=== PATIENT | male | born 1975 | race Caucasian/White ===

== ENCOUNTER 2020-09-23 12:45 | Outpatient (REF) | payer BC, SELFPAY | END 2020-09-23 12:46 | disposition home or self-care (01) | LOC: HO.LAB 12:45 | PROVIDERS: Visit Provider Internal Medicine | DX: Z20.828 Contact with and (suspected) exposure to other viral communicable diseases (principal) | CPT/HCPCS: C9803; U0003 ==

== ENCOUNTER 2025-05-28 12:44 | Emergency (ER) | payer BC, SELFPAY ==
[2025-05-28] VITALS (8 sets, daily range): BP systolic 114–137; BP diastolic 75–89; PULSE 66–99; RESP 16–17; TEMP -17.7–36.4; O2SAT 96–99; BMI 27.8
--- NOTE | ~2025-05-28 | XR_ITS ---
EXAMINATION: XR CHEST CLINICAL INFORMATION: dizziness COMPARISON: 02/16/2016 TECHNIQUE: 2 views of the chest were obtained. FINDINGS: The cardiac, hilar, and mediastinal contours are normal. The lungs are clear bilaterally. There is no pneumothorax or pleural effusion. There is no focal osseous or soft tissue abnormality. XR/XR chest 2V IMPRESSION: Normal chest. Electronically signed by: Amrit Mckoy MD 05/28/2025 02:01 PM EDT
--- NOTE | 2025-05-28 12:47 | ECG_ITS ---
Test Reason : ABDNORMAL EKG Blood Pressure : */* mmHG Vent. Rate : 72 BPM Atrial Rate : 72 BPM P-R Int : 156 ms QRS Dur : 134 ms QT Int : 384 ms P-R-T Axes : 33 27 3 degrees QTcB Int : 420 ms Normal sinus rhythm Right bundle branch block Abnormal ECG When compared with ECG of 24-Aug-2009 22:38, Right bundle branch block is now Present Referred By: Dulce Maria Gilbert Electronically Signed By: HIPOLITO MOMIN
--- NOTE | 2025-05-28 12:53 | ED.GENADULT ---
HPI - General Adult General Chief complaint: Arrhythmia/Palpitations Stated complaint: Dizzy Lightheaded Abnormal EKG Time Seen by Provider: 05/28/25 12:59 Source: patient Mode of arrival: ambulatory Limitations: no limitations History of Present Illness ED Provider: HPI narrative: 49-year-old male complaining of dizziness for the past 3- 4 weeks, he reports a feeling of like he may pass out, nonsmoker, drinks approximately 8-10 drinks a week, states does not have a PCP has not been able to find anyone who is taken on your patients, no chest pain, he reports chronic dyspnea, no dysuria no hematuria. No palpitations. Went to urgent Care was sent here because he has a right bundle-branch block on EKG. Related Data Previous Rx's ?Medication ?Instructions ?Recorded meclizine 25 mg tablet 25 mg PO TID-QID PRN dizziness 5 05/28/25 days #30 tabs Allergies Allergy/AdvReac Type Severity Reaction Status Date / Time SEASONAL ALLERGIES Allergy Mild NASAL Uncoded 05/28/25 12:52 CONJ, SINUS H/A Review of Systems Constitutional: Constitutional: Reports as per [facility] Social History Social History Advance Directives: Yes Advance Directives Information Provided: Yes Advance Directives on File: No Do you have a plan to hurt others: No Plan Physical Exam ED Vital Signs: Vital Signs - 24 hr 05/28/25 12:45 05/28/25 13:22 05/28/25 13:25 Temperature 97.6 F Pulse Rate 78 88 76 Respiratory Rate 16 16 16 Blood Pressure 125/85 129/88 134/89 Pulse Oximetry 99 Oxygen Delivery Method Room Air 05/28/25 13:26 05/28/25 15:55 05/28/25 15:57 Temperature Pulse Rate 99 66 67 Respiratory Rate 16 Blood Pressure 114/75 137/87 127/85 Pulse Oximetry Oxygen Delivery Method 05/28/25 15:58 Temperature Pulse Rate 71 Respiratory Rate Blood Pressure 122/89 Pulse Oximetry Oxygen Delivery Method BMI result Body Mass Index 27.8 Const Other: Gen: ?Overall well-appearing patient HEENT: PERRLA, EOMI, MMM, Neck: Supple, no LAD CV: RRR, no obvious murmurs appreciated Resp: ?No wheezing rales rhonchi no stridor moving air well Abd: ?Bowel sounds are present, no tenderness no rebound no rigidity MSK: FROM, strength 5/5 all extremities Skin: Warm, dry, intact,, no dysmetria upper extremities or lower extremities he did have some symptoms of vertigo left-sided horizontal nystagmus no sustained without vertical or rotary component Neuro: ?Alert and oriented x3, moving upper and lower extremities symmetrically, no obvious facial asymmetry noted Course Course Course Narrative: Rapid medical examination performed in triage by Dulce Maria Gilbert PA-C. Patient is a 49 year old assigned male at presenting to the emergency department with dizziness / lightheadedness and an abnormal outpatient EKG. Detailed physical exam and review of systems are deferred to the metal precision machine assembler. EKG, labs, imaging ordered. Patient placed back in the waiting room pending room availability and results. Medications Administered Generic Name Dose Route Start Last Admin Trade Name Freq PRN Reason Stop Dose Admin Lactated Ringer's 1,000 mls @ 0 mls/hr 05/28/25 13:30 05/28/25 15:03 Lr IV Infused .Q0M WILLIAMS Infusion Wide Open Discontinued Medications Generic Name Dose Route Start Last Admin Trade Name Freq PRN Reason Stop Dose Admin Meclizine HCl 12.5 mg 05/28/25 13:23 05/28/25 13:35 Meclizine Hcl 12.5 Mg Tablet PO 05/28/25 13:24 12.5 mg ONCE ONE Administration Scopolamine 1.5 mg 05/28/25 13:23 05/28/25 13:35 Scopolamine 1.5 Mg Patch.Td.3 EAR-BEHIND 05/28/25 13:24 1.5 mg ONCE ONE Administration Procedures Ultrasound ED POC Ultrasound: EMERGENCY ULTRASOUND REPORT?Point of Care Cardiac (Echo-Focus), images I locally stored Emergent Cardiac for Indication: Presyncope Views Used: Parasternal long, parasternal short, 4 chamber, subxiphoid, IVC Pericardial Effusion/Tamponade Findings: No pericardial effusion Global LV Fxn: Good cardiac squeeze IVC Dilation and Resp Variation: IVC collapsed consistent with hypovolemia, no evidence for RV strain no pericardial effusion Medical Decision Making Medical Decision Making MDM Narrative: Patient presenting with what appears to be both slight vertigo as well as evidence of hypovolemia and positive orthostatic changes, bedside ultrasound with evidence of IVC collapse more than 50%, possibly related to lifestyle, also 8-10 drinks of alcohol a week, there was no pericardial effusion RV strain to suspect PE, no dysrhythmia, he went to urgent Care initially was sent to the ER because of right bundle-branch block without any other dysrhythmia or QT abnormalities, it was cleaned to him that RBBB is not something that he needs to worry about, did pause with him I discussed that he needs to have a PCP involved in his care he has had a hard time finding 1 unfortunately. We will treat with fluids, anti vertigo medications, we will reassess we will determine disposition. 16:18 with fluids patient's blood pressure improved, he did have orthostatic vital sign changes, see my discharge instructions Differential Diagnosis Differential Diagnoses: The differential diagnosis associated with the presentation includes (ACS, dysrhythmia, electrolyte derangements, dehydration, anemia, PE,) Admission/Observation Consideration of admission/observation: Escalation of care including admission/observation considered 2022 Emergency Medicine Coding Guide from [employer] on 05/28/2025 All calculations should be rechecked by clinician prior to use RESULT SUMMARY: 5 Estimated Level of Service Problems: Moderate (4) Risk: High (5) Data: Extensive (5) NARRATIVE MDM: This patient's problem complexity is Moderate as patient: has a new undiagnosed problem with uncertain prognosis but that could be serious. This patient's risk is High due to: overall presentation requiring evaluation for a potentially High-risk process. This patient's data complexity is Extensive due to: -multiple tests ordered/reviewed -external notes reviewed -independent interpretation of imaging or EKG INPUTS: Number and Complexity ?> 5 = 4: undiagnosed new problem, uncertain outcome (e) Risk level ?> 4 = High Tests ordered ?> 3 = >= Tests results reviewed (excluding labs) ?> 3 = >= Prior external notes reviewed ?> 1 = 1 Assessment requiring and independent historian ?> 0 = No Independent interpretation of tests ?> 1 = Yes Discussed management/test interpretation w/external professional ?> 0 = No Lab Data MDM Lab Attestation statement: I reviewed the patient's lab results. 05/28/25 13:03 05/28/25 13:03 Labs: Lab Results 05/28/25 Range/Units 13:03 WBC 8.2 (4.8-10.8) X10*3/uL RBC 4.91 (4.60-5.80) X10*6/uL Hgb 14.6 (14.0-18.0) g/dl Hct 42.6 (42.0-52.0) % MCV 86.8 (80.0-98.0) fL MCH 29.7 (27.0-33.0) pg MCHC 34.3 (31.0-36.0) g/dl RDW 12.5 (11.0-16.0) % Plt Count 210 (160-400) X10*3/uL MPV 9.8 (9.4-12.4) fL Immature Gran % (Auto) 0.2 (0.0-0.4) % Neut % (Auto) 70.2 (45-73) % Lymph % (Auto) 20.8 (20-40) % [place] % (Auto) 7.8 (2-11) % Eos % (Auto) 0.6 (0-4) % Baso % (Auto) 0.4 (0-2) % Lymph # (Auto) 1.7 (1.2-4.9) X10*3/uL [place] # (Auto) 0.6 (0.1-1.2) X10*3/uL Eos # (Auto) 0.1 (0.0-0.4) X10*3/uL Baso # (Auto) 0.0 (0.0-0.2) X10*3/uL Abs Immat Gran (auto) 0.02 (0.00-0.03) X10*3/uL Absolute Neuts (auto) 5.7 (2.0-8.3) x10*3/uL Absolute Nucleated RBC 0.000 (0.0-0.012) X10*3/uL Nucleated RBC % (auto) 0.0 (0.0-0.2) /100WBC PT 10.8 L (10.9-12.4) SEC INR 0.9 (0.9-1.1) Sodium 139 (135-145) mmol/L Potassium 4.0 (3.3-5.1) mmol/L Chloride 107 (96-108) mmol/L Carbon Dioxide 25 (22-29) mmol/L Anion Gap 11 L (12-20) BUN 19 H (9-16) mg/dL Creatinine 1.08 (0.5-1.4) mg/dL Estim Creat Clear Calc 89.8 Estimated GFR > 60 Random Glucose 90 (60-115) mg/dL Calcium 9.7 (8.4-10.2) mg/dL Magnesium 1.8 (1.6-2.6) mg/dL Total Bilirubin 0.6 (0.0-1.0) mg/dL AST 27 (5-37) U/L ALT 25 (0-40) U/L Alkaline Phosphatase 55 (39-117) U/L Troponin I High Sens < 2.7 (<3.5-35.0) ng/L Total Protein 7.2 (6.5-8.0) g/dL Albumin 4.7 (3.5-5.0) g/dL Independent Interpretation I performed an independent interpretation of an: EKG (72 beats per minute, right bundle-branch block, no QTC prolongation, no dysrhythmia, sinus rhythm) and Plain X-Ray (My independent chest xray interpretation: Lungs: Lungs are clear bilaterally without evidence of focal consolidation, pleural effusion, or pneumothorax. Cardiac silhouette is unremarkable, no obvious mediastinal widening, no obvious bony abnormalities such as fractures. Impression: Normal chest X-r) Radiology Impression Discussion of test interpretation with radiology: I have reviewed the radiologist's reading. External Record Review External record reviewed: Office record (Urgent care record) Discharge Plan Discharge Clinical Impression: Orthostatic hypotension, Hypovolemia, Benign paroxysmal positional vertigo Patient Disposition: Home, Self-Care Instructions: Dizziness (ED) Additional Instructions: Please stay well hydrated throughout the day with water and electrolyte containing solutions such as Gatorade/Powerade I would cut down to 5 alcoholic drinks a week We spoke about establishing PCP follow-up Your workup was consistent with hypovolemia, dehydration, and likely slight amount of vertigo and I believe it is possibly due to the fact that you are over cleaning and irritating your ear canals The rest of the workup has been reassuring Use meclizine as prescribed every 6-8 hours if you have sensation of spinning/vertigo Prescriptions: New meclizine 25 mg tablet 25 mg PO TID-QID PRN (Reason: dizziness) 5 Days Qty: 30 0RF Print Language: Pakistani
[2025-05-28 13:08] LABS: MANUAL DIFF FLAG NO
[2025-05-28 13:09] LABS: Hematocrit 42.6 % (42.0-52.0); Hemoglobin 14.6 g/dl (14.0-18.0); Imm Gran Abs Auto 0.02 X10*3/uL (0.00-0.03); Imm Gran Pct Auto 0.2 % (0.0-0.4); Lymphocytes Absolute Auto 1.7 X10*3/uL (1.2-4.9); Mean Corpuscular HGB Conc 34.3 g/dl (31.0-36.0); Mean Corpuscular Hemoglobin 29.7 pg (27.0-33.0); Mean Corpuscular Volume 86.8 fL (80.0-98.0); NRBC Abs Auto 0.000 X10*3/uL (0.0-0.012); NRBC Pct Auto 0.0 /100WBC (0.0-0.2); Platelet Count 210 X10*3/uL (160-400); Red Blood Count 4.91 X10*6/uL (4.60-5.80); White Blood Count 8.2 X10*3/uL (4.8-10.8)
[2025-05-28 13:20] LABS: INTERNATIONAL NORM RATIO 0.9 (0.9-1.1); Prothrombin Time 10.8 SEC (10.9-12.4)
[2025-05-28] MEDS: Lactated Ringers 1,000 ML 1000 ML IV (13:34)
[2025-05-28 13:37] LABS: Alanine Aminotransferase 25 U/L (0-40); Albumin Level 4.7 g/dL (3.5-5.0); Alkaline Phosphatase 55 U/L (39-117); Anion Gap 11 (12-20); Aspartate Amino Transferase 27 U/L (5-37); Blood Urea Nitrogen 19 mg/dL (9-16); Calcium 9.7 mg/dL (8.4-10.2); Carbon Dioxide 25 mmol/L (22-29); Chloride 107 mmol/L (96-108); Creatinine Clr Calc Pharmacy 89.8; Estimated Glomerular Filt Rate > 60; Magnesium 1.8 mg/dL (1.6-2.6); Potassium 4.0 mmol/L (3.3-5.1); Sodium 139 mmol/L (135-145); Total Protein 7.2 g/dL (6.5-8.0)
[2025-05-28 13:40] LABS: Troponin-I High Sensitivity < 2.7 ng/L (<3.5-35.0)
--- OUTSIDE RECORDS SUMMARY | 2025-05-28 15:10 | XMS_ITS ---
[facility] Name [facility] Organization Unknown Care Team Organization Name Specialty Phone Email Start Date End Da [facility] JIGNA GODDARD Primary Care 08/11/2022 05/22/2024
== END 2025-05-28 16:39 | disposition home or self-care (01) ==
PROVIDERS: Physician Assistant Medical; Emergency Provider Emergency Medicine
DX: I95.1 Orthostatic hypotension (principal); E86.1 Hypovolemia; H81.10 Benign paroxysmal vertigo, unspecified ear; R94.31 Abnormal electrocardiogram [ECG] [EKG]; R11.0 Nausea; I45.10 Unspecified right bundle-branch block; Z79.899 Other long term (current) drug therapy; Z51.81 Encounter for therapeutic drug level monitoring
CPT/HCPCS: 36415; 71046; 80053; 83735; 84484; 85025; 85610; 93005; 96360; 99284; 99285; J7120

== ENCOUNTER → 2025-05-28 12:47 | Outpatient (BNV) | payer BC, SELFPAY | PROVIDERS: Emergency Provider Emergency Medicine; Visit Provider Internal Medicine | DX: I45.10 Unspecified right bundle-branch block (principal) | CPT/HCPCS: 93010 ==

== ENCOUNTER → 2025-05-28 12:54 | Outpatient (BNV) | payer BC, SELFPAY | PROVIDERS: Emergency Provider Emergency Medicine; Visit Provider Radiology Diagnostic Radiology | DX: R42 Dizziness and giddiness (principal) | CPT/HCPCS: 71046 ==